=== PATIENT | male | born 1955 | race Caucasian/White ===

== ENCOUNTER → 2016-07-30 | Outpatient (CLI) | payer BC ==
[~2016-07-30] MED LIST: ALBUAER19 INH; CLR10 PO; FLUT0.0529 NAE; MOME100A INH; MOME200A INH; MONT1TAB3 PO; NAPR1TAB9 PO; OPTIRAY 320 IV PRN; ULT50X PO
--- NOTE | 2016-07-30 09:48 | DIAGNOSTIC IMAGING REPORT ---
CT OF THE CHEST WITH IV CONTRAST CLINICAL HISTORY: Pulmonary nodule. COMPARISON STUDY: Chest CT September 17, 2014 and January 10, 2016 TECHNIQUE: Following IV administration of 92 mL of Optiray-320, helical axial images of the chest were obtained. Images were viewed in the axial, sagittal and coronal planes. IV contrast was administered without complication. CT DOSE: 318.19 mGy.cm FINDINGS: There is mild emphysema. No enlarged axillary, mediastinal or hilar lymph nodes are present. The size of the heart is at the upper limits of normal. There is no pericardial effusion. Central airways are patent. A mixed solid and groundglass lesion within the apical segment of the right upper lobe has slightly increased in size since initial CT of September 17, 2014. This now measures 3.6 x 2.9 cm. It initially measured 3.3 x 2.4 cm. A few calcified nodules are noted within the lungs. There is no pneumothorax or pleural effusion. Bony thorax and upper abdomen are unremarkable. IMPRESSION: Minimal increase in size of the mixed solid and groundglass lesion within the apical segment of the right upper lobe since initial CT of September 17, 2014. This is highly suggestive of a slow growing malignancy likely within the adenocarcinoma spectrum. Electronically signed by: Jean-Pierre Lombardo M.D. 07/30/2016 9:46 AM Dictated Date/Time: 07/30/2016 9:31 AM
== END | disposition home or self-care (01) ==
LOC: C.CTS 09:05
PROVIDERS: ATTEND Internal Medicine Pulmonary Disease
DX: R91.1 Solitary pulmonary nodule (principal); J45.909 Unspecified asthma, uncomplicated; E78.5 Hyperlipidemia, unspecified

== ENCOUNTER → 2016-09-17 | Outpatient (CLI) | payer BC ==
[~2016-09-17] MED LIST changes: -OPTIRAY 320 IV PRN
--- NOTE | 2016-09-17 10:31 | DIAGNOSTIC IMAGING REPORT ---
PET/CT HISTORY: Lung nodule PULMONARY NODULE TECHNIQUE: PET/CT was performed from the base of the skull through the pelvis following the intravenous administration of 14.8 mCi of F18-FDG. Non-contrast CT imaging was performed over the same range without breath-hold for attenuation correction of PET images and anatomic correlation, but not for primary interpretation as it is not of standard diagnostic quality. CT DOSE: 466.91 mGycm COMPARISON: None. FINDINGS: HEAD AND NECK: There is no FDG-avid disease or significant lymphadenopathy in the imaged portions of the head and the neck. CHEST: Groundglass nodule in the right upper lung shows only a slight increase in metabolic activity. SUV characteristics do not exceed 0.9. ABDOMEN/PELVIS: Below the diaphragm, tracer is distributed physiologically in the gastrointestinal and genitourinary tracts. There is no significant lymphadenopathy and no FDG-avid disease. MUSCULOSKELETAL: There is no FDG-avid or destructive bone lesion. IMPRESSION: 1. Groundglass nodule right upper lung shows only a trace amount of increased metabolic activity with SUVs of 0.9 at maximum.. 2. This diminishes the possibility of a aggressive neoplastic process, although a lobe metabolic activity lesion is not entirely excluded given the slightly progressive CT findings. 3. Continued close follow-up is recommended. This should be at the patient/physician discretion. This could include continued CT surveillance or targeted bronchoscopy, Electronically signed by: Ranjith Euceda M.D. 09/17/2016 10:30 AM Dictated Date/Time: 09/17/2016 10:22 AM
== END | disposition home or self-care (01) ==
LOC: C.PET 07:33
PROVIDERS: ATTEND Surgery
DX: R91.1 Solitary pulmonary nodule (principal)

== ENCOUNTER 2016-11-22 06:12 | Inpatient (IN) | payer BC ==
[2016-11-12 08:37] VITALS: BMI 25.0
--- NOTE | 2016-11-12 09:10 | PAT Medication Instructions ---
Service Date Nov 12, 2016. Current Home Medication List Albuterol Inhaler (Ventolin Inhaler), 2 PUFFS INH QID PRN for SOB/Wheezing Fluticasone Propionate (Nasal) (Flonase), 1 SPRY DAYLIN DAILY PRN for ALLERGIC REACTION Loratadine (Claritin), 10 MG PO DAILY PRN for ALLERGIC REACTION Mometasone Furoate-Formoterol (Dulera 200/5 Mcg), 2 PUFFS INH BID PRN for PRN Naproxen (Aleve), 20 MG PO DAILY PRN for Pain Medication Instructions For Your Scheduled Surgery - Check with surgeon for instructions: Naproxen (Aleve), 20 MG PO DAILY PRN for Pain - Hold the following medications the morning of surgery: Loratadine (Claritin), 10 MG PO DAILY PRN for ALLERGIC REACTION - Take the following medications the morning of surgery with a sip of water: Mometasone Furoate-Formoterol (Dulera 200/5 Mcg), 2 PUFFS INH BID PRN for PRN ( if needed) Albuterol Inhaler (Ventolin Inhaler), 2 PUFFS INH QID PRN for SOB/Wheezing ( bring with you hospital morning of surgery; use if needed) Fluticasone Propionate (Nasal) (Flonase), 1 SPRY DAYLIN DAILY PRN for ALLERGIC REACTION (if needed) - Take the following medications as scheduled the night before surgery: Mometasone Furoate-Formoterol (Dulera 200/5 Mcg), 2 PUFFS INH BID PRN for PRN ( if needed) Albuterol Inhaler (Ventolin Inhaler), 2 PUFFS INH QID PRN for SOB/Wheezing (if needed) Fluticasone Propionate (Nasal) (Flonase), 1 SPRY DAYLIN DAILY PRN for ALLERGIC REACTION (if needed) If you have any questions please call us at [phone] or [phone] or [phone]
[2016-11-12 10:19] LABS: BASO % 0.5 %; BASO ABS # 0.04 K/uL (0-0.2); COMPLETE YES; EOS % 8.4 %; IG% 0.2 %; LYMPH % 22.7 %; LYMPH ABS # 1.86 K/uL (1.2-3.4); MEAN CELL VOLUME 95.7 fL (80-100); MEAN CORPUSCULAR HEMOGLOBIN 31.7 pg (25-34); MEAN CORPUSCULAR HGB CONC 33.1 g/dl (32-36); MEAN PLATELET VOLUME 9.7 fL (7.4-10.4); MONO % 7.1 %; NEUT % 61.1 %; PLATELET COUNT 282 K/uL (130-400); WHITE BLOOD COUNT 8.19 K/uL (4.8-10.8)
[2016-11-12 10:51] LABS: BUN/CREATININE RATIO 18.3 (10-20); CALCIUM 9.4 mg/dl (8.5-10.1); CREATININE 0.87 mg/dl (0.60-1.40)
[2016-11-22] VITALS (10 sets, daily range): BP systolic 100–164; BP diastolic 62–82; PULSE 80–93; TEMP 36.4–36.8; O2SAT 94–100; Ht 185.4 cm; Wt 87.6 kg
[~2016-11-22] VITALS: Ht 185.4 cm; Wt 87.6 kg
[~2016-11-22 06:12] MED LIST changes: +LACTATED RINGER'S 1000ML 1,000 ML IV SCH; -MOME100A INH; -MONT1TAB3 PO; -ULT50X PO
[2016-11-22] MEDS ORDERED: PROPOFOL IV EMULSION 10 MG/ML 20 ML VIAL IV ONE (06:17)
[2016-11-22] MEDS ORDERED: ONDANSETRON INJ 2 MG/ML 2 ML VIAL ONE ×2 (06:17→11:01)
[2016-11-22] MEDS ORDERED: DEXAMETHASONE SOD INJ 4 MG/ML VIAL ONE (06:17)
[2016-11-22] MEDS ORDERED: LIDOCAINE HCL 2% 2 ML VIAL (20MG/ML) ONE (06:17)
[2016-11-22] MEDS ORDERED: ROCURONIUM BROMIDE 10 MG/ML 5 ML VIAL ONE ×2 (06:17→08:45)
[2016-11-22] MEDS ORDERED: MIDAZOLAM HCL 1 MG/ML 2ML VIAL ONE (06:18)
[2016-11-22] MEDS ORDERED: FENTANYL CITRATE INJ 50 MCG/1 ML 2 ML VIAL ONE ×4 (06:18→11:01)
--- NOTE | 2016-11-22 07:38 | History & Physical Bridge Note ---
H&P Re-Evaluation Bridge Note: I have examined the patient, reviewed the History & Physical and in the interval since the performance of the History & Physical I have noted the following changes of clinical significance: No changes noted pt marked, SO at bedside
[2016-11-22] MEDS ORDERED: BUPIVACAINE LIPOSOME 1/3% 266 MG/20 ML VIAL INFIL ONE (07:40)
[2016-11-22] MEDS ORDERED: SODIUM CHLORIDE 0.9% PF 50 ML VIAL ONE (07:40)
[2016-11-22] MEDS ORDERED: MEPERIDINE HCL 25 MG/ML CARP IV PRN (07:45)
[2016-11-22] MEDS ORDERED: NALOXONE HCL 0.4 MG/1 ML VIAL/CARP IV PRN (07:45)
[2016-11-22] MEDS ORDERED: LABETALOL HCL IV 5 MG/ML 20ML IV PRN (07:45)
[2016-11-22] MEDS ORDERED: PHENYLEPHRINE 100MCG/ML 5ML SYR IV PRN (07:45)
[2016-11-22] MEDS ORDERED: ONDANSETRON INJ 2 MG/ML 2 ML VIAL IV PRN ×2 (07:45→11:30)
[2016-11-22] MEDS ORDERED: FLUMAZENIL 0.1 MG/1 ML 10 ML VIAL IV PRN (07:45)
[2016-11-22] MEDS ORDERED: ATROPINE SULFATE 0.1 MG/ML 5ML SYR IV PRN (07:45)
[2016-11-22] MEDS ORDERED: EpHEDrine SULFATE INJ 50 MG/ML AMP IV PRN (07:45)
[2016-11-22] MEDS ORDERED: MoRPHine SULFATE 10 MG/ML CARP/VIAL IV PRN (07:45)
[2016-11-22] MEDS ORDERED: CEFAZOLIN SOD 1 GM VIAL ONE (08:10)
[2016-11-22] MEDS ORDERED: GLYCOPYRROLATE INJ 0.2 MG/ML VIAL ONE (10:48)
[2016-11-22] MEDS ORDERED: NEOSTIGMINE METHYLSULFATE 5 MG/5 ML SYR ONE (10:48)
[2016-11-22] MEDS ORDERED: D5W AND 1/2NSS 1,000 ML IV SCH (11:29)
[2016-11-22] MEDS ORDERED: FLUTICASONE PROPIONATE NA SPR 16 GM BTL NAE PRN (11:30)
[2016-11-22] MEDS ORDERED: MoRPHine SULFATE 2 MG/ML CARP IV PRN (11:30)
[2016-11-22] MEDS ORDERED: LORATADINE 10 MG TAB PO PRN (11:30)
[2016-11-22] MEDS ORDERED: OXYCODONE HCL IR 5 MG TAB (IMMEDIATE RELEASE) PO PRN (11:30)
[2016-11-22] MEDS ORDERED: ALBUTEROL HFA 8 GM INHALER INH PRN (11:30)
[2016-11-22] MEDS: HYDROmorphone INJ 1 MG/ML SYR IV PRN ×4 (12:02→12:30)
--- NOTE | 2016-11-22 12:23 | Anesthesiology Progress Note ---
Anesthesia Post Op Note Date & Time Nov 22, 2016 at 12:22 Vital Signs Pain Intensity: 4 Vital Signs Past 12 Hours Date Time Temp Pulse Resp B/P (MAP) Pulse Ox O2 Delivery O2 Flow Rate FiO2 11/22/16 12:20 84 18 136/82 98 Nasal Cannula 2 11/22/16 12:10 83 18 129/74 97 Nasal Cannula 2 11/22/16 12:00 75 15 138/73 96 Nasal Cannula 2 11/22/16 11:51 36.4 76 16 147/79 96 Nasal Cannula 2 11/22/16 06:35 36.8 93 18 149/81 98 Room Air Notes Mental Status: alert / awake / arousable, participated in evaluation Pt Amnestic to Procedure: Yes Nausea / Vomiting: adequately controlled Pain: adequately controlled Airway Patency, RR, SpO2: stable & adequate BP & HR: stable & adequate Hydration State: stable & adequate Anesthetic Complications: no major complications apparent
--- NOTE | 2016-11-22 12:30 | DIAGNOSTIC IMAGING REPORT ---
CHEST ONE VIEW PORTABLE CLINICAL HISTORY: Right upper lobe nodule status post resection COMPARISON STUDY: 12/22/2014 FINDINGS: The cardiac and mediastinal contours remain stable. Postsurgical changes are present on the right. There is a right-sided chest tube present. There is a 13 mm right apical pneumothorax. There are left basilar atelectatic changes.[ There is right-sided subcutaneous emphysema. IMPRESSION: Postsurgical changes on the right with a 13 mm right apical pneumothorax. Left basilar subsegmental atelectasis. Electronically signed by: Narendra Cruz M.D. 11/22/2016 12:29 PM Dictated Date/Time: 11/22/2016 12:28 PM
[2016-11-22] MEDS: KETOROLAC TROMETHAMINE 15 MG/ML VIAL IV. SCH ×2 (14:33→21:44)
[2016-11-22] MEDS: METOCLOPRAMIDE HCL INJ 5 MG/ML 2 ML VIAL IV. SCH ×2 (14:34→21:43)
[2016-11-22] MEDS: ACETAMINOPHEN IV 1,000 MG in EMPTY BAG 0 ML IV SCH ×2 (14:36→21:43)
[2016-11-22] MEDS: CEFAZOLIN IV 2,000 MG in DEXTROSE 5% 50ML 50 ML IV SCH (16:24)
[2016-11-22] MEDS: MOMETASONE FUROATE-FORMOTEROL (DULERA) 200mcg/5mcg per inh INH SCH (20:57)
[2016-11-22] MEDS: DOCUSATE SODIUM 100 MG CAP PO SCH (20:57)
[2016-11-23] VITALS (7 sets, daily range): BP systolic 105–136; BP diastolic 66–80; PULSE 80–93; TEMP 36.5–36.8; O2SAT 95–99
[2016-11-23] MEDS: CEFAZOLIN IV 2,000 MG in DEXTROSE 5% 50ML 50 ML IV SCH (00:01)
[2016-11-23] MEDS: KETOROLAC TROMETHAMINE 15 MG/ML VIAL IV. SCH ×3 (05:54→22:10)
[2016-11-23] MEDS: METOCLOPRAMIDE HCL INJ 5 MG/ML 2 ML VIAL IV. SCH ×2 (05:54→14:00)
[2016-11-23] MEDS: ACETAMINOPHEN IV 1,000 MG in EMPTY BAG 0 ML IV SCH (05:54)
--- NOTE | 2016-11-23 05:56 | Surgery Progress Note ---
Surgery Progress Note Date of Service Nov 23, 2016. Subjective Post OP Day: 1 s/p right Vats right upper lobectomy with node dissection alert coherent in no distress intra op findings discussed with pt Objective Vital Signs: Date Time Temp Pulse Resp B/P (MAP) Pulse Ox O2 Delivery O2 Flow Rate FiO2 11/23/16 01:29 36.5 86 16 105/66 (79) 97 Room Air 11/23/16 00:00 Room Air 11/22/16 23:25 36.8 89 16 100/62 (75) 96 Room Air 11/22/16 19:22 91 110/67 (81) 11/22/16 19:05 36.8 91 20 164/69 (100) 99 Room Air 11/22/16 16:39 36.7 84 16 113/68 (83) 100 Room Air 11/22/16 15:30 99 Room Air 11/22/16 15:20 36.4 86 18 127/78 (94) 97 Nasal Cannula 2.0 11/22/16 14:20 80 17 137/82 (100) 97 Nasal Cannula 2.0 11/22/16 13:50 86 20 132/78 (96) 96 Nasal Cannula 2.0 11/22/16 13:20 36.5 89 16 123/75 (91) 94 Nasal Cannula 2.0 11/22/16 13:20 Nasal Cannula 2.0 11/22/16 13:20 Nasal Cannula 2.0 11/22/16 13:00 36.8 84 18 123/70 99 Nasal Cannula 2 11/22/16 12:50 36.8 81 18 123/70 96 Nasal Cannula 2 11/22/16 12:35 36.8 83 18 125/68 98 Nasal Cannula 2 11/22/16 12:20 84 18 136/82 98 Nasal Cannula 2 11/22/16 12:10 83 18 129/74 97 Nasal Cannula 2 11/22/16 12:00 75 15 138/73 96 Nasal Cannula 2 11/22/16 11:51 36.4 76 16 147/79 96 Nasal Cannula 2 11/22/16 06:35 36.8 93 18 149/81 98 Room Air Physical Exam: chest tube drainage (minimal no forced exp leak) Respiratory/Chest: lungs clear Laboratory Results: Results Past 24 Hours Test 11/22/16 06:54 Range/Units Hepatitis C Antibody Screen NEG NEG Microbiology Results 11/22/16 Urine Culture, Received Pending Assessment & Plan 11/23/16 will d/c suction chest tube increase activity Tim Agosto covering weekend
--- NOTE | 2016-11-23 08:00 | DIAGNOSTIC IMAGING REPORT ---
CHEST ONE VIEW PORTABLE CLINICAL HISTORY: 61 years-old Male presenting with RUL pulmonary nodule. TECHNIQUE: Portable upright AP view of the chest was obtained. COMPARISON: 11/22/2016 and PET/CT from 09/17/2016. FINDINGS: Large bore right pleural drain terminates in the paramediastinal right upper hemithorax. Diffuse soft tissue emphysema overlies the right chest wall as on prior exam likely related to the presence or placement of the pleural drain. Cardiomediastinal silhouette normal. Suture margin is noted in the right upper lobe with associated opacity. Decreased left basilar opacities. Small right apical pneumothorax unchanged from prior. No large effusion. Degenerative changes of the thoracic spine. Upper abdomen within normal limits. IMPRESSION: 1. Persistent small right apical pneumothorax despite the presence of the large bore right pleural drain. 2. Postsurgical changes of the right upper lobe with associated atelectasis. 3. Decreased left basilar atelectasis. Electronically signed by: Koffi Marcelino M.D. 11/23/2016 7:58 AM Dictated Date/Time: 11/23/2016 7:54 AM
--- NOTE | 2016-11-23 08:18 | Anesthesiology Progress Note ---
Anesthesia Post Op Note Date & Time Nov 23, 2016 at 08:17 Vital Signs Pain Intensity: 3.0 Vital Signs Past 12 Hours Date Time Temp Pulse Resp B/P (MAP) Pulse Ox O2 Delivery O2 Flow Rate FiO2 11/23/16 07:34 36.7 82 16 116/69 (85) 98 Room Air 11/23/16 07:30 Room Air 11/23/16 06:45 98 Room Air 11/23/16 05:26 36.6 80 16 116/73 (87) 99 Room Air 11/23/16 01:29 36.5 86 16 105/66 (79) 97 Room Air 11/23/16 00:00 Room Air 11/22/16 23:25 36.8 89 16 100/62 (75) 96 Room Air Notes Mental Status: alert / awake / arousable, participated in evaluation Pt Amnestic to Procedure: Yes Nausea / Vomiting: adequately controlled Pain: adequately controlled Airway Patency, RR, SpO2: stable & adequate BP & HR: stable & adequate Hydration State: stable & adequate Anesthetic Complications: no major complications apparent
[2016-11-23] MEDS: DOCUSATE SODIUM 100 MG CAP PO SCH ×2 (08:48→20:41)
[2016-11-23] MEDS: ENOXAPARIN 40 MG/0.4 ML SYR SQ SCH (08:48)
[2016-11-23] MEDS: MOMETASONE FUROATE-FORMOTEROL (DULERA) 200mcg/5mcg per inh INH SCH ×2 (08:49→20:41)
[2016-11-23] MEDS ORDERED: ACETAMINOPHEN 325 MG TAB ONE (12:40)
--- NOTE | 2016-11-23 12:54 | SURGERY PROGRESS NOTE ---
DATE: 11/23/2016 Mr. Wall is 1 day out status post thoracoscopic right upper lobectomy and mediastinal lymphadenectomy. In turns out that he does have an adenocarcinoma. This was undiagnosed going in. I think he looks quite good today. He has no air leak. He has drained very little from his chest tube. His x-ray looks quite good. ASSESSMENT AND PLAN: Postoperative day #1, status post thoracoscopic right upper lobectomy and mediastinal lymphadenectomy. I believe we are going to be able to send him home tomorrow. I will be covering for Dr. Koehler who will be out of town.
[2016-11-23] MEDS: ACETAMINOPHEN 325 MG TAB PO SCH ×3 (14:05→23:57)
[2016-11-24 04:04] VITALS: BP 137/82; PULSE 85; TEMP 36.9; O2SAT 95
[2016-11-24] MEDS: ACETAMINOPHEN 325 MG TAB PO SCH ×4 (06:13→23:48)
[2016-11-24] MEDS: KETOROLAC TROMETHAMINE 15 MG/ML VIAL IV. SCH (06:14)
--- NOTE | 2016-11-24 07:20 | DIAGNOSTIC IMAGING REPORT ---
CHEST ONE VIEW PORTABLE CLINICAL HISTORY: Postoperative evaluation. COMPARISON STUDY: Chest radiograph November 23, 2016. FINDINGS: A right chest tube remains in place. A small to moderate right apical pneumothorax has increased in size since exam of November 23, 2016. There is 2.1 cm of pleural separation. Right suprahilar opacity is noted. There is gas within the right chest wall. Left basilar opacity suggest atelectasis. There is no evidence of pulmonary edema. IMPRESSION: Increase in size of a [id number] right apical pneumothorax. Right chest tube in place. Electronically signed by: Jean-Pierre Lombardo M.D. 11/24/2016 7:18 AM Dictated Date/Time: 11/24/2016 7:15 AM
[2016-11-24] MEDS: DOCUSATE SODIUM 100 MG CAP PO SCH ×2 (07:24→21:38)
[2016-11-24] MEDS: ENOXAPARIN 40 MG/0.4 ML SYR SQ SCH (07:24)
[2016-11-24] MEDS: MOMETASONE FUROATE-FORMOTEROL (DULERA) 200mcg/5mcg per inh INH SCH ×2 (07:25→21:38)
[2016-11-24 07:30] VITALS: BP 143/89; PULSE 90; TEMP 36.9; O2SAT 97
[2016-11-24] MEDS ORDERED: POLYETHYLENE (MIRALAX) 17 GM PACK PO PRN (09:45)
--- NOTE | 2016-11-24 10:08 | SURGERY PROGRESS NOTE ---
DATE: 11/24/2016 DATE: 11/24/2016. Mr. Wall was seen today on postop day 2 status post thoracoscopic right upper lobectomy and mediastinal lymphadenectomy. He looks great. His only problem is that he has not moved his bowels. Otherwise, his pain has been well controlled. He is on room air. His pathology is not back yet. The x-ray today showed a small apical pneumothorax and he has an intermittent tiny air leak. I believe it would be prudent to wait 1 more day before pulling his chest tube and letting him go home. He was a bit disappointed with this but I explained that it would be much better than for us to wait than have to put a new tube in. He understands. We will keep the tube in 1 more day and check a chest x-ray in the morning. DIPAK
[2016-11-24 15:25] VITALS: BP 142/84; PULSE 94; TEMP 36.7; O2SAT 97
[2016-11-24 20:13] VITALS: BP 150/84; PULSE 90; TEMP 36.8; O2SAT 98
[2016-11-24 23:05] VITALS: BP 133/79; PULSE 85; TEMP 36.5; O2SAT 96
[2016-11-25] MEDS: ACETAMINOPHEN 325 MG TAB PO SCH (05:56)
--- NOTE | 2016-11-25 07:05 | DIAGNOSTIC IMAGING REPORT ---
CHEST ONE VIEW PORTABLE CLINICAL HISTORY: Postoperative evaluation. Lobectomy. Pneumothorax. COMPARISON STUDY: 11/22/2016 FINDINGS: The cardiac and mediastinal contours remain stable. There is right-sided subcutaneous emphysema. The right-sided chest tube remains unchanged in position. There is a decreasing right apical pneumothorax the pleural separation of 11 mm. There is no lobar consolidation. There is minor left basilar atelectasis.[ IMPRESSION: Interval decrease in the small right apical pneumothorax which has a pleural separation of 11 mm. Electronically signed by: Narendra Cruz M.D. 11/25/2016 7:04 AM Dictated Date/Time: 11/25/2016 7:03 AM
[2016-11-25 07:41] VITALS: BP 134/90; PULSE 95; TEMP 36.8; O2SAT 95
[2016-11-25] MEDS ORDERED: ULT50X PO (09:52)
[2016-11-25] MEDS: DOCUSATE SODIUM 100 MG CAP PO SCH (09:56)
[2016-11-25] MEDS: ENOXAPARIN 40 MG/0.4 ML SYR SQ SCH (09:56)
[2016-11-25] MEDS: MOMETASONE FUROATE-FORMOTEROL (DULERA) 200mcg/5mcg per inh INH SCH (09:56)
--- NOTE | 2016-11-25 09:56 | Discharge Instructions ---
Discharge Instructions Date of Service Nov 25, 2016. Admission Reason for Admission: Right Upper Lobe Pulmonary Nodule Discharge Discharge Diagnosis / Problem: Non small cell lung ca Discharge Goals Goal(s): Learn about illness (f/u with Dr Flores who will go over your pathology with you.) Activity Recommendations Activity Limitations: as noted below Lifting Limitations: gradually increase as tolerated Exercise/Sports Limitations: gradually increase as tolerated May Resume Sexual Activity: when tolerated Shower/Bathe: may shower/bathe in 3 days Driving or Machine Use: resume 3 days after discharge . Instructions / Follow-Up Instructions / Follow-Up Remove all dressings in [address] Flores's office will call you to be seen in office next week with a chest xray. Call [phone] Jenkins with any problems. Current Hospital Diet Patient's current hospital diet: Regular Diet Discharge Diet Recommended Diet: Regular Diet Procedures Procedures Performed: Right Video Assisted Thoracoscopy with Right Upper Lobectomy, Mediastinal Lymph Node Dissection Pending Studies Studies pending at discharge: yes List of pending studies: Pathology Medical Emergencies . Who to Call and When: Medical Emergencies: If at any time you feel your situation is an emergency, please call 911 immediately. . Non-Emergent Contact Non-Emergency issues call your: Primary Care Provider . "Provider Documentation" section prepared by Castillo Jenkins. . VTE Core Measure Inpt VTE Proph given/why not?: Enoxaparin (Lovenox)SQ, SCD's
--- NOTE | 2016-11-25 09:58 | DIAGNOSTIC IMAGING REPORT ---
CHEST ONE VIEW PORTABLE CLINICAL HISTORY: Postoperative examination. Right-sided chest tube removal. COMPARISON STUDY: 11/22/2016 FINDINGS: Right-sided chest tube has been removed. There is slight interval increase in the size of the right apical pneumothorax which measures 14 mm. There is right-sided subcutaneous emphysema. There is stable increased markings in the right suprahilar region, likely representing postsurgical edema/atelectasis.[ IMPRESSION: Interval removal of the right-sided chest tube. 14 mm right apical pneumothorax. Electronically signed by: Narendra Cruz M.D. 11/25/2016 9:56 AM Dictated Date/Time: 11/25/2016 9:55 AM
[2016-11-25 10:08] VITALS: BP 134/90; PULSE 95; TEMP 36.8; O2SAT 95
--- NOTE | 2016-11-25 10:29 | Surgery Progress Note ---
Surgery Progress Note Date of Service Nov 25, 2016. Subjective feeling well. chest tube removed today. no complaints. Objective Vital Signs: Date Time Temp Pulse Resp B/P (MAP) Pulse Ox O2 Delivery O2 Flow Rate FiO2 11/25/16 10:08 36.8 95 16 95 Room Air 11/25/16 07:41 36.8 95 16 134/90 (105) 95 Room Air 11/25/16 07:31 Room Air 11/25/16 01:13 Room Air 11/24/16 23:05 36.5 85 16 133/79 (97) 96 Room Air 11/24/16 20:29 Room Air 11/24/16 20:13 36.8 90 17 150/84 (106) 98 Room Air 11/24/16 15:30 Room Air 11/24/16 15:25 36.7 94 16 142/84 (103) 97 Room Air General Appearance: no apparent distress Respiratory/Chest: no respiratory distress, no accessory muscle use Incision(s): clean, dry, intact Assessment & Plan doing well d/w Dr. Jenkins. chest tube removed. if cxr ok can go home today.
--- NOTE | 2016-11-25 16:42 | DISCHARGE SUMMARY ---
DISCHARGE DIAGNOSES: 1. Nonsmall cell lung carcinoma, right upper lobe. 2. History of asthma. 3. Hyperlipidemia. 4. History of cigarette smoking in the distant past. HOSPITAL COURSE: Mr. Wall is a 61-year-old male who is basically healthy, who has a history of cigarette smoking in the distant past. He smoked from age 14 to age 26, more than 2 packs a day. The patient fell and while doing some work on a ladder and was found to have a small nodule in his right upper lobe. This was followed and recently it appeared to have gotten larger. Dr. Koehler was working this patient up and scheduled him for surgery. On 11/22/2016, the patient was brought to the operating room here at [facility] and underwent an uncomplicated thoracoscopic right upper lobectomy and mediastinal lymphadenectomy. Frozen section showed this to be a nonsmall cell lung carcinoma. We did a complete lymph node dissection. He tolerated it well, was extubated in the room and watched from the floor. He was on room air, ambulating in the hallway. He was eating well. I contemplated discharge him on postop day #2, but he still had a very small air leak. On postop day #3, this had resolved. I removed his chest tube and his chest x-ray showed no evidence of pneumothorax. He was discharged home on postop day #3. He will follow up with Dr. Koehler to go over his pathology results. His incisions were all clean and he looked quite good at the time of discharge.
--- NOTE | 2016-11-28 08:10 | OPERATIVE REPORT ---
DATE OF OPERATION: 11/22/2016 PREOPERATIVE DIAGNOSIS: suspicious lesion rul Post op dx: adenoca by frozen section Surgeons: Zakia Jenkins PROCEDURE: Right video-assisted thorascopic surgery with right upper lobectomy and node dissection.(level 7,11,12,10,4,2,8,) SUMMARY: The patient was brought into the operating room theatre, double lumen endotracheal tube was positioned. The patient was properly prepped in the left lateral position. The right chest was prepped with Betadine scrubbing solution and properly draped. We at this point made an incision approximately 1 inch long right anterior to the tip of the scapula. We made a large incision approximately the ninth intercostal space anteriorly to the anterior axillary line and made another incision at approximately the 11th intercostal space which was another 1 inch incision and then a working channel incision was made running inferior to the axilla approximately the fourth intercostal space. CO2 was then insufflated through one of the trocars and the lung was collapsed. I visualized the lung cavity. There were no adhesions to the lower lobe and middle lobe. There were some adhesions to the right upper lobe towards the apical area which were taken down with Harmonic scalpel. Gross inspection of the lung there was nothing obvious we could see and this lesion certainly was not the palpable but given the characteristics of a scar carcinoma. At this point, we then used the harmonic scapula and then retracted the lung medially and we were able to free up the posterior mediastinum along the bronchus dissecting down more bluntly the bronchus intermedius and right upper lobe bronchus. We were able to identify a lymph node in that area and sent it as such. Once we had accomplished this area, we took our dissection more cephalad around the azygous vein and were able to get some more lymph nodes in that area. Our dissection was then carried out more medially along the hilum and then incised the mediastinal pleura in that area exposing the superior pulmonary vein identifying the branches to the lower lobe and blunt dissection of this and gentle dissection mostly with the suction around it and were able to develop a plane between the pulmonary artery and the superior pulmonary vein. Once this was completely freed up, we were able then to place endovascular load of the MARIANA and was able to transect the vein. This opened up that area quite nicely. As we dissected out the pulmonary artery branches through the right upper lobe we were able to get level 11 nodes. We then identified the apical branch of the pulmonary artery and divided it. Once we had dissected this, we used the MARIANA stapler again to continue to divide the tissue between the right upper lobe and mostly the lower lobe. Of note, the patient had a bilobular type of middle lobe. Having established this pattern we were able then to elevate and dissect out the bronchial area and then used the stapler the thicker for bronchioles and divided the bronchus. We then were able to place the bronchus in the Endopouch and take it out through the working channel. The area was checked for hemostasis and appeared quite satisfactory. We were able then to take it to pathology and confirmed that this was a very small carcinoma, probably 1.5 cm at its initial region. Further dissection, we were able to get level 2 and level 4 nodes. Intercostal block of bupivacaine was injected. A 28 chest tube was positioned in the lower chest area, attached to skin edges with 2-0 . The area was then checked for any bronchial leak and any leak prior to removing the last camera and there was no obvious air leak. Wound was then closed with 4-0 Monocryl, Dexon and Steri-Strips applied. The procedure was tolerated well by the patient. Estimated blood loss approximately 20 mL. The patient was taken to recovery room in good condition. Please note that this was a 2-surgeon case: Dr. Koehler and Dr. Jenkins as both surgeons. I attest to the content of the Intraoperative Record and any orders documented therein. Any exceptions are noted below. DIPAK
--- NOTE | 2016-12-24 10:01 | OPERATIVE REPORT ---
DATE OF OPERATION: 11/22/2016 PROCEDURE: Thoracoscopic right upper lobectomy with mediastinal lymph node dissection. SURGEON: Dr. Jenkins. CO-SURGEON: Dr. Koehler. VP [employer]: FRACISCO Rogers. ANESTHESIA: General anesthesia endotracheal intubation. PREOPERATIVE DIAGNOSIS: Suspicious appearing lesion right upper lobe in a smoker. POSTOPERATIVE DIAGNOSIS: Adenocarcinoma of the right upper lobe. DESCRIPTION OF PROCEDURE: The patient brought to the operating room and laid in supine position. General anesthesia induced and endotracheal intubation was performed with a double lumen tube. After appropriate monitoring lines and arterial line were placed. The patient was then turned into the left lateral decubitus position and the right chest was prepped and draped in usual sterile fashion. Appropriate timeout was called and antibiotics were given and he had been prepped. An incision was made just anterior to the tip and one interspace below the tip of the scapula. A carbon dioxide was insufflated upon placing the camera to be seen there were really no adhesions except for the right upper lobe. Another incision was made approximately the seventh interspace anteriorly and then another incision made at the fourth interspace which was our working channel. Harmonic scalpel was used take down the apical adhesions. We could not palpate any lesions. We proceeded with the right upper lobectomy. The lung was retracted anteriorly and then posterior mediastinal pleura was opened. Level 10, 11 and 7 nodes were biopsied. Azygos vein was freed up and then the lung was retracted posteriorly. The anterior mediastinum was freed up using the Harmonic scalpel. Care was taken to avoid injury to the phrenic nerve. The superior pulmonary vein was bluntly and sharply dissected out and Endo-MARIANA stapler was fired just above the confluence of the middle lobe vein and the upper lobe vein. After this was done and with further retraction inferiorly and laterally, the level 10 and level 11 nodes were dissected out and the branches of the pulmonary artery were much better visualize. The apical anterior branch was divided with an Endo-MARIANA. This freed up nicely. We kept coming in the fissure and came upon another branch which was divided with an Endo-MARIANA stapler. At this point, the right upper lobe bronchus was visualized. We had dissected it out bluntly and sharply posteriorly and now we were doing this anteriorly. A single branch was left. This posterior ascending branch to the right upper lobe was divided with Endo-MARIANA stapler. At this point, we then proceeded with a division of the anterior fissure using Endo-MARIANA stapler between the middle lobe and upper lobe. We identified the middle lobe arteries. There were 2 of these and we were able to stay away from these. We then divided the bronchus with an Endo-MARIANA stapler and finally used Endo-MARIANA stapler and fired it about 3 times to complete the posterior fissure. An Endobag was used to remove the right upper lobe through the working channel. Frozen section showed this mass to be an adenocarcinoma and margins were negative. While waiting for the frozen section, we dissected out the level 2 and level 4 nodes. I also took down the inferior pulmonary ligament to down at level 8 node. I really did not see a level 9 node. Bleeding was well controlled. We lost very little in the way of blood. A 266 mg of Exparel (liposomal bupivacaine) was reconstituted in approximately 60 mL of normal saline and used to do an intrathoracic block from the 2nd to the 11th rib. A 24-Telugu chest tube was then placed in the anterior inferior thoracoscopy port and directed towards the apex. It was held in place with heavy silk suture. The muscle layers of all 3 incisions were closed with 0 Vicryl and 4-0 Monocryl was used in a subcuticular fashion to approximate the wound edges. Antimicrobial dressings were placed. The patient tolerated it quite well. I attest to the content of the Intraoperative Record and any orders documented therein. Any exception s are noted below.
== END 2016-11-25 11:30 | disposition home or self-care (01) | DRG 165 ==
LOC: C.ACU 06:12 → C.MSN 11:34 → ENRESERV 12:23
PROVIDERS: ADMIT Surgery; ATTEND Surgery
PROC: 0BTC4ZZ Resection of Right Upper Lung Lobe, Percutaneous Endoscopic Approach (ICD-10-PCS; principal; 2016-11-22 08:15)
DX: C34.11 Malignant neoplasm of upper lobe, right bronchus or lung (principal); J45.909 Unspecified asthma, uncomplicated; M19.90 Unspecified osteoarthritis, unspecified site; Z79.899 Other long term (current) drug therapy; Z79.51 Long term (current) use of inhaled steroids; Z79.1 Long term (current) use of non-steroidal anti-inflammatories (NSAID); Z87.891 Personal history of nicotine dependence

== ENCOUNTER → 2016-12-17 | Outpatient (CLI) | payer BC ==
[~2016-12-17] MED LIST changes: -LACTATED RINGER'S 1000ML 1,000 ML IV SCH; +ULT50X PO
--- NOTE | 2016-12-17 11:52 | DIAGNOSTIC IMAGING REPORT ---
CHEST 2 VIEWS ROUTINE CLINICAL HISTORY: C34.90 Adenocarcinoma of [id number] lung carcinoma COMPARISON STUDY: 11/25/2016 FINDINGS: no evidence of pneumothorax at the current time. Minimal atelectatic change right lung base which may in part be postoperative. Left lung remains clear. No current evidence for pneumothorax. IMPRESSION: 1. No evidence pneumothorax. 2. Interval development of atelectatic change and or consolidative change right base medially. Components of this potentially are postoperative. Lungs otherwise remain clear. The above report was generated using voice recognition software. It may contain grammatical, syntax or spelling errors. Electronically signed by: Ranjith Euceda M.D. 12/17/2016 11:51 AM Dictated Date/Time: 12/17/2016 11:49 AM
== END | disposition home or self-care (01) ==
LOC: C.RAD1850 11:25
PROVIDERS: ATTEND Surgery
DX: C34.90 Malignant neoplasm of unspecified part of unspecified bronchus or lung (principal)

== ENCOUNTER → 2017-05-20 | Outpatient (CLI) | payer BC ==
[~2017-05-20] MED LIST changes: +OPTIRAY 320 IV PRN
--- NOTE | 2017-05-20 07:52 | DIAGNOSTIC IMAGING REPORT ---
CHEST CT WITH CONTRAST CT DOSE: 409.54 mGy.cm HISTORY: Follow-up study in a patient with history of lung cancer LUNG ADENOCARCINOMA TECHNIQUE: Multiaxial CT images of the chest were performed following the intravenous administration of contrast. A dose lowering technique was utilized adhering to the principles of ALARA. COMPARISON: PET CT 09/17/2016, CT chest 07/30/2016. FINDINGS: There is no dominant thyroid nodule identified. Linear scarring of the right axillary region suggests possible axillary node sampling. Mildly prominent subcarinal lymph node measures 1.6 x 1.0 cm as seen on image 147 series 4, unchanged. Heart is normal in size without pericardial effusion. Mild coronary arterial disease. Thoracic aorta is normal in both course and caliber without aneurysm or dissection. Mild kinking of the mid right subclavian artery without high-grade stenosis. The opacified pulmonary arterial tree is unremarkable. There are postoperative changes compatible with prior right upper lobectomy. No evidence of metastatic disease, residual or local disease recurrence. There is mild subsegmental pleural-parenchymal scarring adjacent to the suture material. Central airways are patent. Mild nodularity along the lateral aspect of the right upper thoracic trachea is seen on image 31 series 4 suggests area of possible layering mucous secretions. Left lung is generally clear. No acute abnormality of the imaged upper abdomen. Soft tissues are unremarkable. The bones appear intact without suspicious lytic or blastic bony lesions identified. IMPRESSION: 1. Prior right upper lobectomy without evidence of metastatic disease, residual or local disease recurrence. 2. No pathologic adenopathy identified. Electronically signed by: Paramjit Wharton M.D. 05/20/2017 7:50 AM Dictated Date/Time: 05/20/2017 7:39 AM
== END | disposition home or self-care (01) ==
LOC: C.CTS 07:14
PROVIDERS: ATTEND Internal Medicine Hematology & Oncology
DX: C34.11 Malignant neoplasm of upper lobe, right bronchus or lung (principal); Z90.2 Acquired absence of lung [part of]

== ENCOUNTER → 2017-11-25 | Outpatient (CLI) | payer BC ==
[~2017-11-25] MED LIST changes: -OPTIRAY 320 IV PRN
--- NOTE | 2017-11-25 16:32 | DIAGNOSTIC IMAGING REPORT ---
(CHEST) THORAX WITHOUT CT DOSE: 444.17 mGy.cm HISTORY: Lung carcinoma LUNG Ca TECHNIQUE: Multiaxial CT images of the chest were performed without contrast. A dose lowering technique was utilized adhering to the principles of ALARA. COMPARISON: 05/20/2017 FINDINGS: Operative changes consistent with a prior right upper lobectomy. Minimal parenchymal scarring adjacent to the right major fissure transaxial image 25 unchanged. Minimal right perihilar fibrotic and/or postoperative scarring also unchanged. No evidence for new or interval process. Chronic pleural thickening posterior aspect right midlung. No significant nodular pathology. No significant hilar or mediastinal adenopathy. IMPRESSION: No acute process. Stable chronic postoperative changes right hemithorax. The above report was generated using voice recognition software. It may contain grammatical, syntax or spelling errors. Electronically signed by: Ranjith Euceda M.D. 11/25/2017 4:30 PM Dictated Date/Time: 11/25/2017 4:25 PM
== END | disposition home or self-care (01) ==
LOC: C.CTS 15:40
PROVIDERS: ATTEND Internal Medicine Hematology & Oncology
DX: C34.11 Malignant neoplasm of upper lobe, right bronchus or lung (principal)